=== PATIENT | male | born 1965 ===

== ENCOUNTER 2025-05-11 05:27 | Day surgery (SDC) | payer OTHER ==
[2025-05-04 13:06] VITALS: BP 131/83
[~2025-05-11] VITALS: Ht 167.6 cm; Wt 95.3 kg
[~2025-05-11 05:27] MED LIST: CLONAZEPAM1 MG PO; PAXIL CR25 MG PO
[2025-05-11] MEDS ORDERED: CEFTRIAXONE SODIUM 2,000 MG VIAL ONE (07:25)
[2025-05-11] MEDS ORDERED: METRONIDAZOLE/SODIUM CHLORIDE 500 MG/100 ML PIGGYBACK IV ONE (07:25)
[2025-05-11] MEDS ORDERED: POVIDONE-IODINE 118 ML BOTT TOP ONE (08:00)
[2025-05-11] MEDS ORDERED: HEMOSTATIC MATRIX 1 KIT KIT TOP ONE (08:00)
[2025-05-11] MEDS ORDERED: TAMSULOSIN HCL 0.4 MG CAP PO ONE ×2 (08:15→09:55)
[2025-05-11] MEDS ORDERED: OXYCODONE HCL5 MG PO (09:27)
[2025-05-11] MEDS ORDERED: OXYC1TAB9 PO (10:41)
== END 2025-05-11 11:00 | disposition home or self-care (01) ==
LOC: CIR.AMB 05:27
PROVIDERS: ATTEND Surgery
DX: D12.8 Benign neoplasm of rectum (principal); A63.0 Anogenital (venereal) warts; K62.0 Anal polyp; K62.89 Other specified diseases of anus and rectum